=== PATIENT | male | born 1955 | race Caucasian/White ===

== ENCOUNTER 2021-03-23 19:42 | Emergency (ER) | payer BC ==
[~2021-03-23] VITALS: Ht 180.3 cm; Wt 79.8 kg
[2021-03-23 20:50] VITALS: BP 141/85
[2021-03-23] MEDS ORDERED: TDAP [DIPH/PERTUSSIS/TET] 0.5 ML VIAL IM ONE ×2 (21:00→21:23)
== END 2021-03-23 22:39 | disposition home or self-care (01) ==
LOC: ER 19:48
DX: S61.210A Laceration without foreign body of right index finger without damage to nail, initial encounter (principal); I10 Essential (primary) hypertension; W25.XXXA Contact with sharp glass, initial encounter; Y93.89 Activity, other specified; Y92.89 Other specified places as the place of occurrence of the external cause; Y99.8 Other external cause status
CPT/HCPCS: 90715